=== PATIENT | female | born 1970 | race Caucasian/White ===

== ENCOUNTER → 2018-12-30 | Outpatient (CLI) | payer BC ==
--- NOTE | 2019-01-02 08:48 | MM ---
Reason for exam: screening (asymptomatic). Last mammogram was performed 1 year and 7 months ago. History: Took hormonal contraceptives for 10 years. Physical Findings: A clinical breast exam by your physician is recommended on an annual basis and results should be correlated with mammographic findings. MG Screening Mammo w CAD Bilateral CC and MLO view(s) were taken. Prior study comparison: May 25, 2017, bilateral MG screening mammo w CAD. December 04, 2009, bilateral digital screening mammogram. The breast tissue is heterogeneously dense. This may lower the sensitivity of mammography. Benign appearing bilateral calcifications. No significant changes when compared with prior studies. ASSESSMENT: Benign, BI-RAD 2 RECOMMENDATION: Routine screening mammogram of both breasts in 1 year.
== END | disposition home or self-care (01) ==
LOC: RADMAMWWP 14:50
PROVIDERS: ATTEND Family Medicine
DX: Z12.31 Encounter for screening mammogram for malignant neoplasm of breast (principal)
CPT/HCPCS: 77067

== ENCOUNTER 2019-02-01 02:22 | Emergency (ER) | payer BC ==
[2019-02-01 02:30] VITALS: RESP 18; TEMP 97.5
[2019-02-01] MEDS ORDERED: HYDROmorphone 0.5 MG/0.5 ML SYRINGE IVP STA (02:44)
[2019-02-01] MEDS ORDERED: KETOROLAC 30 MG/ML 1 ML VIAL IVP STA (02:44)
[2019-02-01] MEDS ORDERED: SODIUM CHLORIDE 0.9% 1,000 ML IV STA (02:44)
[2019-02-01] MEDS ORDERED: ONDANSETRON 4 MG/2 ML VIAL IVP STA (02:44)
[2019-02-01 03:09] LABS: Basophils # (A) 0.1 k/uL (0-0.2); Basophils % (A) 1 %; Eosinophils # (A) 0.2 k/uL (0-0.7); Eosinophils % (A) 1 %; HCT 37.1 % (34.0-46.0); HGB 12.3 gm/dL (11.4-16.0); Lymphocytes # (A) 2.1 k/uL (1.0-4.8); Lymphocytes % (A) 15 %; MCH 28.6 pg (25.0-35.0); MCHC 33.3 g/dL (31.0-37.0); MCV 85.9 fL (80.0-100.0); Mean Platelet Volume 7.4; Monocytes # (A) 0.5 k/uL (0-1.0); Monocytes % (A) 3 %; Neutrophils # (A) 11.2 k/uL (1.3-7.7); Neutrophils % (A) 79 %; Platelet Count 271 k/uL (150-450); RBC 4.32 m/uL (3.80-5.40); WBC 14.1 k/uL (3.8-10.6)
[2019-02-01 03:10] LABS: Appearance,Urine Cloudy (Clear); Bilirubin,Urine Negative (Negative); Blood,Urine Large (Negative); Color,Urine Light Red; Glucose,Urine (UA) Negative (Negative); Ketones,Urine Negative (Negative); Leukocyte Esterase,Urine Small (Negative); Mucus,Urine Occasional /hpf; Nitrite,Urine Negative (Negative); Protein,Urine 1+ (Negative); RBC,Urine >182 /hpf (0-5); Specific Gravity,Urine 1.024 (1.001-1.035); Squamous Epithelial Cell,Urine 7 /hpf (0-4); Urobilinogen,Urine <2.0 mg/dL (<2.0); WBC,Urine 13 /hpf (0-5)
[2019-02-01 03:14] LABS: Albumin 3.7 g/dL (3.5-5.0); Potassium 3.9 mmol/L (3.5-5.1); Total Bilirubin 0.2 mg/dL (0.2-1.3); Total Protein 6.3 g/dL (6.3-8.2)
--- NOTE | 2019-02-01 04:06 | ED ---
Abdominal Pain HPI - General Chief Complaint: Abdominal Pain Stated Complaint: Back Pain Time Seen by Provider: 02/01/19 02:40 Source: patient Mode of arrival: wheelchair Limitations: no limitations - History of Present Illness Initial Comments: 48-year-old female patient presents to the emergency department today for evaluation of left flank pain. Patient states the pain started suddenly 2 hours ago. Patient states the pain is sharp, stabbing, and severe. States she has had nausea and vomiting with this. She denies any hematuria, dysuria, urinary frequency, urinary urgency. Denies any history of similar symptoms. States the pain is now starting to go into the left lower quadrant abdomen. Denies any constipation or diarrhea. Denies previous abdominal surgeries. Denies taking any medication for her symptoms. Patient denies any recent rash, fever, chills, shortness breath, chest pain, numbness, tingling, dizziness, weakness, headache, visual changes, or any other complaints. - Related Data Previous Rx's Medication Instructions Recorded Hydrocodone/Acetaminophen [[place] 1 tab PO Q6HR PRN #12 tab 02/01/19 5-325] Ibuprofen [Motrin] 600 mg PO Q8HR PRN #30 tab 02/01/19 Ondansetron [Zofran ODT] 4 mg PO Q8HR PRN #10 tab 02/01/19 Tamsulosin HCl [Flomax] 0.4 mg PO DAILY #7 cap 02/01/19 Allergies Allergy/AdvReac Type Severity Reaction Status Date / Time No Known Allergies Allergy Verified 02/01/19 02:29 Review of Systems ROS Statement: Those systems with pertinent positive or pertinent negative responses have been documented in the HPI. ROS Other: All systems not noted in ROS Statement are negative. Past Medical History Past Medical History: Hypertension History of Any Multi-Drug Resistant Organisms: None Reported Past Surgical History: Cholecystectomy, Hysterectomy Additional Past Surgical History / Comment(s): vein removal in bilat legs, Past Psychological History: No Psychological Hx Reported Smoking Status: Never smoker Past Alcohol Use History: None Reported Past Drug Use History: None Reported General Exam Limitations: no limitations General appearance: alert, in no apparent distress, other (This is a well- developed, well-nourished adult female patient in no acute distress. Vital signs upon presentation are temperature 97.5F, pulse 81, respirations 18, blood pressure 136/65, pulse ox 100% on room air.) Eye exam: Present: normal appearance, PERRL, EOMI. Absent: scleral icterus, conjunctival injection, periorbital swelling ENT exam: Present: normal exam, normal oropharynx, mucous membranes moist Respiratory exam: Present: normal lung sounds bilaterally. Absent: respiratory distress, wheezes, rales, rhonchi, stridor Cardiovascular Exam: Present: regular rate, normal rhythm, normal heart sounds. Absent: systolic murmur, diastolic murmur, rubs, gallop, clicks GI/Abdominal exam: Present: soft, normal bowel sounds. Absent: distended, t enderness, guarding, rebound, rigid Back exam: Present: normal inspection, CVA tenderness (L). Absent: CVA tenderness (R) Neurological exam: Present: alert, oriented X3, CN II-XII intact Psychiatric exam: Present: normal affect, normal mood Skin exam: Present: warm, dry, intact, normal color. Absent: rash Course Vital Signs 02/01/19 02/01/19 02:27 04:07 Temperature 97.5 F L Pulse Rate 81 74 Respiratory 18 18 Rate Blood Pressure 136/65 103/64 O2 Sat by Pulse 100 99 Oximetry Medical Decision Making - Medical Decision Making 48-year-old female patient presents to the emergency department today for evaluation of left flank pain and vomiting. Physical examination did reveal left CVA tenderness. No abdominal tenderness. Labs reviewed and did reveal elevated white blood cell, urinalysis showed greater than 182 red blood cells. Symptoms and lab findings are consistent with kidney stones a CT abdomen and pelvis without contrast was obtained, this did show a 6 mm nonobstructing stone at the left UPJ. Patient will be treated with Flomax, nausea medication, pain medication. She is instructed to increase fluids. States instructed to follow- up with urology for recheck as soon as possible. She is instructed to follow-up with her primary care physician for recheck in 1-2 days. Return parameters were discussed in detail. She verbalizes understanding and agrees with this plan. - Lab Data Result diagrams: 02/01/19 02:49 02/01/19 02:49 Lab Results 02/01/19 02/01/19 02/01/19 Range/Units 02:43 02:49 02:49 WBC 14.1 H (3.8-10.6) k/uL RBC 4.32 (3.80-5.40) m/uL Hgb 12.3 (11.4-16.0) gm/dL Hct 37.1 (34.0-46.0) % MCV 85.9 (80.0-100.0) fL MCH 28.6 (25.0-35.0) pg MCHC 33.3 (31.0-37.0) g/dL RDW 15.0 (11.5-15.5) % Plt Count 271 (150-450) k/uL Neutrophils % 79 % Lymphocytes % 15 % Monocytes % 3 % Eosinophils % 1 % Basophils % 1 % Neutrophils # 11.2 H (1.3-7.7) k/uL Lymphocytes # 2.1 (1.0-4.8) k/uL Monocytes # 0.5 (0-1.0) k/uL Eosinophils # 0.2 (0-0.7) k/uL Basophils # 0.1 (0-0.2) k/uL Sodium 136 L (137-145) mmol/L Potassium 3.9 (3.5-5.1) mmol/L Chloride 104 (98-107) mmol/L Carbon Dioxide 23 (22-30) mmol/L Anion Gap 9 mmol/L BUN 20 H (7-17) mg/dL Creatinine 1.01 (0.52-1.04) mg/dL Est GFR (CKD-EPI)AfAm 75 (>60 ml/min/1.73 sqM) Est GFR (CKD-EPI)NonAf 65 (>60 ml/min/1.73 sqM) Glucose 140 H (74-99) mg/dL Calcium 9.0 (8.4-10.2) mg/dL Total Bilirubin 0.2 (0.2-1.3) mg/dL AST 25 (14-36) U/L ALT 18 (9-52) U/L Alkaline Phosphatase 65 (38-126) U/L Total Protein 6.3 (6.3-8.2) g/dL Albumin 3.7 (3.5-5.0) g/dL Amylase 75 (30-110) U/L Lipase 169 (23-300) U/L Urine Color Light Red Urine Appearance Cloudy H (Clear) Urine pH 6.0 (5.0-8.0) Ur Specific [place] 1.024 (1.001-1.035) Urine Protein 1+ H (Negative) Urine Glucose (UA) Negative (Negative) Urine Ketones Negative (Negative) Urine Blood Large H (Negative) Urine Nitrite Negative (Negative) Urine Bilirubin Negative (Negative) Urine Urobilinogen <2.0 (<2.0) mg/dL Ur Leukocyte Esterase Small H (Negative) Urine RBC >182 H (0-5) /hpf Urine WBC 13 H (0-5) /hpf Ur Squamous Epith Cells 7 H (0-4) /hpf Urine Mucus Occasional H (None) /hpf - Radiology Data Radiology results: report reviewed, image reviewed CT abdomen and pelvis without contrast was obtained. Report was reviewed in its entirety. Impression by Dr. Foster shows a 6 mm stone at the left UPJ resulting in mild left-sided hydronephrosis with associated perinephric fat stranding. Bilateral nonobstructive nephrolithiasis. Status post cholecys tectomy. Disposition Clinical Impression: Kidney stone on left side Disposition: HOME SELF-CARE Condition: Good Instructions (If sedation given, give patient instructions): Kidney Stones (ED), How to Strain Your Urine (ED) Additional Instructions: Increase fluids, especially water. Take medications as directed. Complete Flomax prescription in full. Follow-up with urologist for recheck in 1-2 days. Follow-up through primary care physician for recheck in 1-2 days. Return to the emergency department immediately for any new, worsening, or concerning symptoms. Prescriptions: Tamsulosin HCl [Flomax] 0.4 mg PO DAILY #7 cap Ibuprofen [Motrin] 600 mg PO Q8HR PRN #30 tab PRN Reason: Pain Hydrocodone/Acetaminophen [[place] 5-325] 1 tab PO Q6HR PRN #12 tab PRN Reason: Pain Ondansetron [Zofran ODT] 4 mg PO Q8HR PRN #10 tab PRN Reason: Nausea Is patient prescribed a controlled substance at d/c from ED?: Yes When asked, does pt state using other controlled substances?: No If prescribed controlled substance>3 days was MAPS reviewed?: Prescribed <3 Days If opioid is for acute pain is fill amount 7 days or less?: Yes If Rx opioid, was Start Talking consent form obtained?: Yes Referrals: Kate Andre MD [Primary Care Provider] - 1-2 days Yovany Licona MD [STAFF PHYSICIAN] - 1-2 days Time of Disposition: 04:24
--- NOTE | 2019-02-01 04:21 | CT ---
EXAM: CT Abdomen and Pelvis Without Intravenous Contrast CLINICAL HISTORY: Left flank pain TECHNIQUE: Axial computed tomography images of the abdomen and pelvis without intravenous contrast. CTDI is 5.97 mGy and DLP is 322.7 mGy-cm. This CT exam was performed using one or more of the following dose reduction techniques: automated exposure control, adjustment of the mA and/or kV according to patient size, and/or use of iterative reconstruction technique. COMPARISON: No relevant prior studies available. FINDINGS: Lung bases: Unremarkable. No mass. No consolidation. ABDOMEN: Liver: Unremarkable. Gallbladder and bile ducts: Status post cholecystectomy. No ductal dilation. Pancreas: Unremarkable. No ductal dilation. Spleen: A 0.3 cm calcified granuloma is seen within the spleen. Adrenals: Unremarkable. No mass. Kidneys and ureters: There is a 6 mm stone at the left UPJ resulting in mild left-sided hydronephrosis with associated perinephric fat stranding. There is a 2 mm nonobstructing stone in the lower pole of the right kidney along with a punctate nonobstructing stone in the upper pole of the right kidney. Punctate nonobstructing stones are seen in the upper and midpole of the left kidney. Stomach and bowel: Unremarkable. No obstruction. No mucosal thickening. PELVIS: Appendix: No findings to suggest acute appendicitis. Bladder: Unremarkable. No stones. Reproductive: Unremarkable as visualized. ABDOMEN and PELVIS: Intraperitoneal space: Trace pelvic free fluid, likely physiologic. No free air. Bones/joints: No acute fracture. No dislocation. Soft tissues: Unremarkable. Vasculature: Unremarkable. No abdominal aortic aneurysm. Lymph nodes: Unremarkable. No enlarged lymph nodes. IMPRESSION: 1. A 6 mm stone at the left UPJ resulting in mild left-sided hydronephrosis with associated perinephric fat stranding. 2. Bilateral nonobstructive nephrolithiasis. 3. Status post cholecystectomy.
[2019-02-01] MEDS ORDERED: IBUPROFEN 600 MG STARTER PACK 4 TAB BTL PO STA (04:22)
[2019-02-01] MEDS ORDERED: ACET/COD 300 MG/30 MG STARTER PACK 6 TAB BTL PO STA (04:22)
[2019-02-01] MEDS ORDERED: ONDANSETRON 4 MG ODT STARTER PACK 2 TAB BTL PO STA (04:22)
[2019-02-01] MEDS ORDERED: TAMSULOSIN 0.4 MG CAP.ER.24H PO STA (04:22)
[2019-02-01 04:41] VITALS: BP 103/64; PULSE 74
== END 2019-02-01 05:03 | disposition home or self-care (01) ==
LOC: EC 02:22
DX: N13.2 Hydronephrosis with renal and ureteral calculous obstruction (principal); D72.829 Elevated white blood cell count, unspecified; Z90.49 Acquired absence of other specified parts of digestive tract
CPT/HCPCS: 36415; 80053; 82150; 83690; 85025; 81001; 74176; 99284; 96374; 96375 ×2; 96361 ×2; J2405; J1885; S0119; J1170

== ENCOUNTER → 2019-02-16 | Outpatient (CLI) | payer BC | END | disposition home or self-care (01) | LOC: LABPAT 13:46 | PROVIDERS: ATTEND Urology | DX: Z01.818 Encounter for other preprocedural examination (principal); N20.1 Calculus of ureter; R53.83 Other fatigue | CPT/HCPCS: 93005 ==

== ENCOUNTER 2019-02-23 08:46 | Day surgery (SDC) | payer BC ==
[2019-02-15 16:11] VITALS: BMI 20.9
--- NOTE | 2019-02-21 08:57 | P.GSHP ---
History of Present Illness H&P Date: 02/23/19 Chief Complaint: Left Ureteral Calculi 48 yo female that presents for URS due to 6 mm left ureteral stone. No previous hx of renal calculi. Denies any fever/chills. - Constitutional Constitutional: Denies chills, Denies fever - Cardiovascular Cardiovascular: Denies chest pain, Denies shortness of breath - Respiratory Respiratory: Denies dyspnea, Denies wheezing - Gastrointestinal Gastrointestinal: Denies nausea, Denies vomiting - Genitourinary (Male) Genitourinary: Reports kidney stones - Neurological Neurological: Denies weakness Past Medical History Past Medical History: Hypertension Additional Past Medical History / Comment(s): kidney stones History of Any Multi-Drug Resistant Organisms: None Reported Past Surgical History: Cholecystectomy, Hysterectomy Additional Past Surgical History / Comment(s): vein removal in bilat legs, Past Anesthesia/Blood Transfusion Reactions: No Reported Reaction Smoking Status: Never smoker - Past Family History Mother Family Medical History: Cancer Additional Family Medical History / Comment(s): kidney cancer Medications and Allergies Home Medications Medication Instructions Recorded Confirmed Type Hydrocodone/Acetaminophen [[place] 1 tab PO Q6HR PRN #12 tab 02/01/19 02/15/19 Rx 5-325] Ibuprofen [Motrin] 600 mg PO Q8HR PRN #30 tab 02/01/19 02/15/19 Rx Ondansetron [Zofran ODT] 4 mg PO Q8HR PRN #10 tab 02/01/19 02/15/19 Rx Tamsulosin HCl [Flomax] 0.4 mg PO DAILY #7 cap 02/01/19 02/15/19 Rx Losartan [Cozaar] 25 mg PO HS 02/15/19 02/15/19 History Allergies Allergy/AdvReac Type Severity Reaction Status Date / Time No Known Allergies Allergy Verified 02/15/19 16:05 Surgical - Exam - General well developed, well nourished, no distress - ENT normal nares, no hearing loss - Respiratory normal expansion, normal respiratory effort - Abdomen Abdomen: soft, non tender - Musculoskeletal normal gait - Psychiatric oriented to time, oriented to person, oriented to place Assessment and Plan Assessment: 48 yo female with 6 mm UPJ stone, presents today for URS -Ancef 2g -OR for Left URS
[~2019-02-23 08:46] MED LIST: DEXAMETHASONE SOD PHOSPHATE 10 MG/ML 1 ML VIAL IV ONE; LACTATED RINGERS 1,000 ML IV SCH; LIDOCAINE 1% 20 ML VIAL (10MG/ML) FOR IV START INTRADERMA PRN
--- NOTE | 2019-02-23 09:17 | XR ---
EXAMINATION TYPE: XR KUB DATE OF EXAM: 02/23/2019 8:52 AM CLINICAL HISTORY: Presurgical evaluation with history of nephrolithiasis. TECHNIQUE: Single supine KUB image of the abdomen is obtained. COMPARISON: None. FINDINGS: No dilated large or small bowel Punctate calcifications in the pelvis are likely on the bas is of phlebolith on the right and arterial calcification on the left. 1 mm density between the right third and fourth transverse processes could be within bowel or a small ureteral calculus. Stool overl ies the renal shadows obscuring visualization. No discrete calculi are seen. Surgical clips are prese nt within the right upper quadrant and left hemipelvis. Osseous structures appear intact. IMPRESSION: 1 mm opacification between the transverse processes of L3 and L4 on the right could be lo cated related to debris within bowel or a punctate right ureteral calculus. Densities in the pelvis a re likely related to a small right hemipelvic phlebolith and left hemipelvic atherosclerosis.
[2019-02-23] MEDS ORDERED: ONDANSETRON 4 MG/2 ML VIAL IVP ONE ×2 (09:42→13:52)
[2019-02-23] MEDS ORDERED: LIDOCAINE 1% INJ 10MG/ML (20 ML MDV) ONE (11:08)
[2019-02-23] MEDS ORDERED: fentaNYL (PF) 50 MCG/ML 2 ML AMP ONE (11:08)
[2019-02-23] MEDS ORDERED: MIDAZOLAM 2 MG/2 ML VIAL ONE (11:08)
[2019-02-23] MEDS ORDERED: KETOROLAC 30 MG/ML 1 ML VIAL ONE (11:08)
[2019-02-23] MEDS ORDERED: SUCCINYLCHOLINE CHLORIDE 100 MG/5 ML SYR IV ONE (11:08)
[2019-02-23] MEDS ORDERED: PROPOFOL 10 MG/ML 20 ML VIAL IV ONE (11:08)
[2019-02-23] MEDS ORDERED: PHENYLEPHRINE-0.9% NACL SYG 1 MG/10 ML SYRINGE ONE (11:08)
[2019-02-23] MEDS ORDERED: IOPAMIDOL-370 50ML BTL MISCELLANE ONE (11:32)
[2019-02-23] MEDS ORDERED: LACTATED RINGERS 1,000 ML IV ONE ×2 (12:06→13:03)
--- NOTE | 2019-02-23 12:23 | FL ---
EXAMINATION TYPE: FL urography retrograde DATE OF EXAM: 02/23/2019 COMPARISON: NONE HISTORY: Left ureteral stone with laser lithotripsy performed. TECHNIQUE: Fluoroscopy. FINDINGS: Fluoroscopic guidance was provided during procedure performed by Dr. Brand. A total of 11 seconds of fluoroscopic time was utilized during the procedure and 5 spot images was acquired demons trating opacification the left ureter and left ureteral stent. IMPRESSION: As Above.
[2019-02-23 12:29] VITALS: TEMP 97.6
[2019-02-23] MEDS: HYDROmorphone 0.5 MG/0.5 ML SYRINGE IVP PRN ×2 (12:41→12:46)
[2019-02-23 12:49] VITALS: RESP 16
[2019-02-23 15:21] VITALS: BP 121/72; PULSE 65
--- NOTE | 2019-02-23 16:21 | P.OP ---
Date of Procedure: 02/23/19 Preoperative Diagnosis: Left ureteral calculus Postoperative Diagnosis: Same Procedure(s) Performed: Cystoscopy left ureteroscopy and holmium laser lithotripsy, stone basketting and stent placement Implants: 6Fr x 24-stent Anesthesia: JAZMINEA Surgeon: Maximo Brand Estimated Blood Loss (ml): 1 IV fluids (ml): 700 Condition: stable Disposition: PACU Indications for Procedure: Ms. Graff is a 48-year-old female that presented with a 6 mm left ureteral james culus. She elected to proceed with left-sided ureteroscopy, holmium laser lithotripsy and stent placement. We discussed with her risk of and benefit of the procedure including bleeding infection, injury to nearby organs she agreed to proceed with the surgery Operative Findings: 6 mm distal ureteral stone, stone was fragmented and removed completely Description of Procedure: The patient was taken to the operating room and placed in the dorsolithotomy position, with legs supported in Gray stirrups. The external genitalia was prepped and draped sterilely. The 30 lens was used to introduce the 22-Yoruba Stortz cystoscopic sheath through the urethra and into the bladder under direct vision. The bladder was examined in its entirety. Both ureteral orifices were normal anatomic location and configuration. No tumors or foreign bodies were seen. The ACMI semirigid ureteroscope was advanced into the bladder under direct vision, and the left ureteral orifice was cannulated. The 200 micron Holmium laser probe was passed through the ureteroscope, and lithotripsy was performed. Stone basketting was performed stone fragments were removed. Upon completion of the procedure, there were no residual calculus fragments exceeding 1 mm in size. There is no evidence of ureteral perforation. A 24 cm, 6French double-J ureteral stent was placed over the wire. Proper stent positioning was verified fluoroscopically and endoscopically. The bladder was emptied and the cystoscope removed. A small calculus fragment was retrieved. This was sent for chemical analysis. The patient tolerated the procedure well and was taken to the recovery room in stable condition. TAMELA TALLAHASSEEMariajose Report: Procedure Acuity: Elective Stone Size and Location: Left distal ureter 6 mm Ureteral Dilation: None Ureteral Access Sheath Used: No Stone Sent for Analysis: Yes All Stones/Fragments Were Removed with a Basket: Yes Complications: No Preoperative Antibiotics Given: Yes Stent Placed: Yes If Stent Placed, Was String Left Attached: Yes If Stent Placed, When is it to be Removed: 1 week Discharge Medications: [place], Flomax
== END 2019-02-23 15:27 | disposition home or self-care (01) ==
LOC: OR 08:46
PROVIDERS: ATTEND Urology
DX: N20.1 Calculus of ureter (principal); I10 Essential (primary) hypertension; Z87.442 Personal history of urinary calculi; Z79.899 Other long term (current) drug therapy; Z90.49 Acquired absence of other specified parts of digestive tract; Z90.710 Acquired absence of both cervix and uterus; Z98.890 Other specified postprocedural states; Z80.51 Family history of malignant neoplasm of kidney
CPT/HCPCS: 52356; 82365; 74420; 74018; C2625; C1769; C1758; J2250; J1100; J0690; J2405; J2001; J3010; J1885; J2370; J0330; J2704; J1170; Q9967

== ENCOUNTER → 2020-12-27 | Outpatient (CLI) | payer OTHER | END | disposition home or self-care (01) ==

== ENCOUNTER → 2024-07-06 | Outpatient (CLI) | payer OTHER ==
--- NOTE | 2024-07-07 07:31 | MM ---
Reason for Exam: Screening (asymptomatic). Last mammogram was performed 5 year(s) and 6 month(s) ago. Patient History: Menarche at age 11. First Full-Term at age 23. Hysterectomy at age 38. Patient used Hormonal Contraceptives for 10 years. Risk Values: Huong 5 year model risk: 1.3%. NCI Lifetime model risk: 9.1%. Prior Study Comparison: 12/04/2009 Bilateral Screening Mammogram, [facility]. 05/25/2017 Bilateral Screening Mammogram, [facility]. 12/30/2018 Bilateral Screening Mammogram, [facility]. Tissue Density: The breasts are heterogeneously dense, which may obscure small masses. Findings: Analyzed By CAD. There is a group of indistinct calcifications in the posterior depth upper outer aspect left breast increased in number from prior studies. Overall Assessment: Incomplete: need additional imaging evaluation, BI-RAD 0 Management: Diagnostic Mammogram of the left breast. Spot magnification and true lateral views left breast. Patient should continue monthly self-breast exams. A clinical breast exam by your physician is recommended on an annual basis. This exam should not preclude additional follow-up of suspicious palpable abnormalities. Note on Huong scores and lifetime risk: 1. A Huong score greater than 3% is considered moderate risk. If this is the case, consider specialist referral to assess eligibility for a risk reducing agent. 2. If overall lifetime risk for the development of breast cancer is 20% or higher, the patient may qualify for future screening with alternating mammogram and breast MRI. [facility], , 07/07/2024 7:28 AM. Electronically signed and approved by: Isaias Stoner M.D.
== END | disposition home or self-care (01) ==
LOC: RADMAMWWP 16:13
PROVIDERS: ATTEND Family Medicine
DX: Z12.31 Encounter for screening mammogram for malignant neoplasm of breast (principal); R92.333 Mammographic heterogeneous density, bilateral breasts
CPT/HCPCS: 77067

== ENCOUNTER → 2024-07-20 | Outpatient (CLI) | payer OTHER ==
--- NOTE | 2024-07-20 15:21 | MM ---
Reason for Exam: Follow-up at short interval from prior study. Last screening mammogram was performed less than 1 month ago. Patient History: Menarche at age 11. First Full-Term at age 23. Hysterectomy at age 38. Patient used Hormonal Contraceptives for 10 years. Risk Values: Huong 5 year model risk: 1.3%. NCI Lifetime model risk: 9.1%. Prior Study Comparison: 05/25/2017 Bilateral Screening Mammogram, [facility]. 12/30/2018 Bilateral Screening Mammogram, [facility]. 07/06/2024 Bilateral MG screening mammo w CAD, [facility]. Tissue Density: Left: There are scattered areas of fibroglandular density. Findings: Analyzed By CAD. Grouped calcifications left breast lateral aspect on CC view approximately 9.7 cm from the nipple. Overall Assessment: Suspicious, BI-RAD 4 Management: Stereotactic Core Biopsy of the left breast. Results were given to the patient verbally at the time of exam. Patient should continue monthly self-breast exams. A clinical breast exam by your physician is recommended on an annual basis. This exam should not preclude additional follow-up of suspicious palpable abnormalities. Note on Huong scores and lifetime risk: 1. A Huong score greater than 3% is considered moderate risk. If this is the case, consider specialist referral to assess eligibility for a risk reducing agent. 2. If overall lifetime risk for the development of breast cancer is 20% or higher, the patient may qualify for future screening with alternating mammogram and breast MRI. [facility], , 07/20/2024 3:18 PM. Electronically signed and approved by: Justin Mosqueda DO
== END | disposition home or self-care (01) ==
LOC: RADMAMWWP 14:55
PROVIDERS: ATTEND Family Medicine
DX: R92.8 Other abnormal and inconclusive findings on diagnostic imaging of breast (principal); R92.323 Mammographic fibroglandular density, bilateral breasts
CPT/HCPCS: 77061; 77065

== ENCOUNTER → 2024-08-10 | Day surgery (SDC) | payer OTHER ==
[~2024-08-10] MED LIST changes: +ALPRAZolam 0.25 MG TAB PO PRN; +ALPRAZolam 0.5 MG TAB PO PRN; -DEXAMETHASONE SOD PHOSPHATE 10 MG/ML 1 ML VIAL IV ONE; -LACTATED RINGERS 1,000 ML IV SCH; -LIDOCAINE 1% 20 ML VIAL (10MG/ML) FOR IV START INTRADERMA PRN
[2024-08-10 07:56] VITALS: RESP 16
[2024-08-10] MEDS: ALPRAZolam 0.5 MG TAB PO PRN (07:57)
[2024-08-10 09:34] VITALS: BP 138/79; PULSE 71; TEMP 98.1
--- NOTE | 2024-08-11 10:48 | MM ---
Date of Procedure: 08/10/24 Preoperative Diagnosis: Left breast microcalcifications of concern Postoperative Diagnosis: Same Procedure(s) Performed: Stereotactic core biopsy left breast Anesthesia: local Surgeon: Nori Mariscal Pathology: other (Breast tissue with microcalcifications present in biopsy specimen) Condition: stable Disposition: same day Indications for Procedure: Microcalcifications of concern left breast Operative Findings: Microcalcifications of concern in specimen left breast Description of Procedure: The patient on a routine mammogram was noted to have increasing calcifications in the left breast in the upper midportion. The calcifications were posterior in the breast. Stereotactic core biopsy was recommended. Risk and benefits of the procedure were discussed with the patient. She wished to proceed. Physical examination did not reveal any dominant masses or nodules of concern. The patient was taken to the stereotactic core biopsy room. She was positioned positioned in the stereo chair. A hair tinter film was obtained. A CC from above approach was utilized. The area of concern was identified. The lesion was targeted. The breast was prepped using chlorhexidine. 28 cc of 1% lidocaine were used to anesthetize the area of concern. A 9 gauge vacuum-assisted core rotating biopsy needle Petit was driven to the correct coordinates. A prefire film was obtained. The needle was noted to be in the correct location. The needle was fired. A post fire film was obtained. The needle was noted to be in the correct location. Approximately 16 core biopsy specimens were obtained. Radiograph of the specimen revealed the calcifications of concern had been sampled. A secure dipesh Top-Hat clip was deployed. A postprocedure radiograph revealed that the clip was approximately 2 cm superior to the area of concern. It was in the correct medial lateral plane. If resection would be necessary the recommendation would be for resection of the residual calcifications. The specimen was sent to pathology. The patient will follow-up with Dr. Rodriguez in 1 week. CADEN
== END ==
LOC: RADMAMWWP 07:18
PROVIDERS: ATTEND Surgery
DX: N60.12 Diffuse cystic mastopathy of left breast (principal); N60.22 Fibroadenosis of left breast
CPT/HCPCS: 88305; 19081; A4648; J2003

== ENCOUNTER → 2024-08-18 | Outpatient (CLI) | payer OTHER ==
[2024-08-18 08:02] VITALS: BP 120/72; PULSE 88; RESP 17; TEMP 97.9
--- NOTE | 2024-08-18 08:42 | P.PN ---
Subjective Progress Note Date: 08/18/24 Principal diagnosis: fibrocystic breast changes left Morena is a 53-year-old white female seen in consultation for Dr. Andre regarding an abnormal left breast mammogram. She underwent a bilateral screening mammogram in 07-06-2024 which revealed indistinct calcifications in the posterior depth upper outer aspect of the left breast. An additional view of the left breast was performed on 07 20 24. This revealed grouped calcifications left breast lateral aspect 9.7 cm from the nipple. This was considered suspicious BI-RADS 4 and stereotactic core biopsy was recommended. She is not complaining of any new lumps masses or nodules of concern in either breast. She has never had any surgery on her breast. She is not complaining of any recent trauma or infection in the breast. She is not complaining of any nipple discharge or skin changes. She underwent a left breast stero biopsy on 08-10-24. The pathology showed fibrocystic changes including sclerosing adenosis with microcalcifications. It was benign concordant. She had some bruising of the site, which is improving. She tolerated the procedure without difficulty. Caffeine: daily coke or latte nicotine: none chocolate: weekly BCP: 10 years hormone: none Family History: mother: kidney cancer maternal grandmother: kidney cancer maternal uncle: prostate cancer Hormonal History: menarche: 11 M1 age at first : 23, breast fed: yes menopause: hysterectomy at 37 pre-cancer, left ovaries Surgical History: hysterectomy gallbaldder vein on legs Medical History: HTN Social History: nicotine: none alcohol: none drugs: none Review of Systems - Constitutional Denies fever, Denies weight loss - EENT Eyes: denies blurred vision Ears: right: tinnitus, deny: decreased hearing Ears, nose, mouth and throat: Denies dysphagia - Breasts bilateral: as per HPI - Cardiovascular Denies chest pain, Denies shortness of breath - Respiratory Denies cough, - Gastrointestinal Reports as per HPI - Genitourinary Genitourinary: Denies dysuria, Denies hematuria Menstruation: Reports post hysterectomy - Musculoskeletal Reports as per HPI - Integumentary Denies rash, Denies unusual bruising - Neurological Denies headaches, Denies syncope - Psychiatric Reports as per HPI - Endocrine Reports as per HPI - Hematologic/Lymphatic Denies easy bleeding, Denies easy bruising - Allergic/Immunologic Reports as per HPI Past Medical History Past Medical History: Hypertension Additional Past Medical History / Comment(s): kidney stones History of Any Multi-Drug Resistant Organisms: None Reported Past Surgical History: Cholecystectomy, Hysterectomy Additional Past Surgical History / Comment(s): vein removal in bilat legs, Past Anesthesia/Blood Transfusion Reactions: No Reported Reaction Past Psychological History: No Psychological Hx Reported Smoking Status: Never smoker Past Alcohol Use History: None Reported Past Drug Use History: None Reported - Past Family History Mother Family Medical History: Cancer Additional Family Medical History / Comment(s): kidney cancer Medications and Allergies Home Medications Medication Instructions Recorded Confirmed Type Losartan [Cozaar] 50 mg PO HS 02/15/19 08/10/24 History Allergies Allergy/AdvReac Type Severity Reaction Status Date / Time No Known Allergies Allergy Verified 08/10/24 07:33 Objective - Vital Signs Vital signs: Vital Signs Temp 97.9 F 08/18/24 08:00 Pulse 88 08/18/24 08:00 Resp 17 08/18/24 08:00 BP 120/72 08/18/24 08:00 Pulse Ox 100 08/18/24 08:00 FiO2 Intake & Output 08/17/24 08/18/24 08/18/24 18:59 06:59 18:59 Weight 58.06 kg - Constitutional General appearance: Present: cooperative - EENT Eyes: Present: EOMI ENT: Present: hearing grossly normal - Neck Neck: Present: normal ROM - Respiratory Respiratory: bilateral: CTA - Cardiovascular Heart sounds: normal: S1, S2 - Integumentary Integumentary Comment(s): mild bruising at biopsy site left breast, no infection or hematoma Assessment and Plan Assessment: Impression: left breast stero biopsy benign concordant 08-10-24 Plan: repeat left breast mammogram in 6 months with follow up at that time CC: Dr. Andre
== END ==
LOC: WWCWWP 07:52
PROVIDERS: ATTEND Surgery
DX: N60.12 Diffuse cystic mastopathy of left breast (principal)